=== PATIENT | female | born 1945 | race Caucasian/White ===

== ENCOUNTER → 2021-02-06 | Outpatient (CLI) | payer MEDICARE | LOC: RAD 10:45 → VAS 10:45 | DX: R01.1 Cardiac murmur, unspecified (principal) ==

== ENCOUNTER → 2021-04-18 | Day surgery (SDC) | payer MEDICARE | END | disposition home or self-care (01) | LOC: MSO 08:22 | DX: H25.813 Combined forms of age-related cataract, bilateral (principal); E78.00 Pure hypercholesterolemia, unspecified; I10 Essential (primary) hypertension; Z79.899 Other long term (current) drug therapy; Z87.891 Personal history of nicotine dependence | CPT/HCPCS: 00142; J0171; J2250; V2632 ==

== ENCOUNTER → 2021-05-16 | Day surgery (SDC) | payer MEDICARE | LOC: MSO 07:21 | DX: H25.811 Combined forms of age-related cataract, right eye (principal); I10 Essential (primary) hypertension; E78.00 Pure hypercholesterolemia, unspecified; Z87.891 Personal history of nicotine dependence; Z79.899 Other long term (current) drug therapy | CPT/HCPCS: 00142; J0171; J2250; V2632 ==

== ENCOUNTER 2023-05-30 21:09 | Emergency (ER) | payer MEDICARE ==
[~2023-05-30 21:09] MED LIST: ALDACTONE 25MG25 MG; ATORVASTATIN CA80 MG; FUROSEMIDE20 MG; LEVALBUTEROL TA15 GM IH; LISINOPRIL20 MG PO; METOPROLOL SUCC25 M1; MORGIDOX 1X100100 MG; OMEPRAZOLE40 MG; ONDANSETRON HYDR4 MG; PREDNISONE20 M1; PROAIR HFA0.09 MG/AC IH; ROXICODONE 55 MG/TAB; SPIRIVA RE2.5 MCG/Ac IH; STIOLTO RESPIMAT4 GM
[2023-05-30 22:28] LABS: HEMATOCRIT 34.6 % (37.0-47.0); HEMOGLOBIN 11.2 g/dL (12.5-16.0); MEAN CELL VOLUME 85 fl (78-100); MEAN CORPUSCULAR HEMOGLOBIN 28 pg (27-31); MEAN CORPUSCULAR HGB CONC 32 g/dL (33-37); MEAN PLATELET VOLUME 9.2 fl (7.4-10.4); PLATELET COUNT 264 K/mm3 (130-400); RED BLOOD COUNT 4.05 M/mm3 (4.10-5.30); RED CELL DISTRIBUTION WIDTH 15.1 % (11.5-14.5); WHITE BLOOD COUNT 6.4 K/mm3 (4.8-10.8)
[2023-05-30 22:36] LABS: ALBUMIN 3.5 g/dL (3.4-4.8); POTASSIUM 3.4 mmol/L (3.5-5.1)
[2023-05-30 22:37] LABS: CALCIUM 9.2 mg/dL (8.3-10.5)
[2023-05-30 22:38] LABS: TOTAL PROTEIN 6.1 g/dL (6.2-8.1)
[2023-05-30 22:40] LABS: TOTAL BILIRUBIN 0.4 mg/dL (0.2-1.2)
[2023-05-30 23:02] LABS: LYMPHOCYTE 7 % (20-51); MONOCYTE 8 % (3-10); NEUTROPHILS 84 % (42-75)
[2023-05-30 23:35] VITALS: BP 138/78
== END 2023-05-30 23:45 | disposition home or self-care (01) ==
LOC: ED 21:09
PROVIDERS: Family Medicine
DX: C34.91 Malignant neoplasm of unspecified part of right bronchus or lung (principal); Z98.890 Other specified postprocedural states